=== PATIENT | male | born 1965 | race Caucasian/White ===

== ENCOUNTER 2017-04-21 22:21 | Emergency (ER) | payer BC ==
[2017-04-21 22:30] VITALS: BP 149/87; PULSE 98; RESP 18; TEMP 97.6
--- NOTE | 2017-04-21 23:12 | ED ---
Lower Extremity Injury HPI - General Chief Complaint: Extremity Injury, Lower Stated Complaint: L leg injury Time Seen by Provider: 04/21/17 22:35 Source: patient, RN notes reviewed Mode of arrival: ambulatory Limitations: no limitations - History of Present Illness Initial Comments: This a 51-year-old male presents emergency Department chief complaint of left knee bruising. Patient states that he fell while playing [employer] other day. Patient states that he has had surgery on his left knee in the past and was concerned Masella bruising traveling down his leg. He states his knee actually feels better than it has in the past. Patient states his orthopedic doctor is Dr. Marti. Patient states that he has full range of motion and denies any paresthesias. Denies any ankle pain. - Related Data Home Medications Medication Instructions Recorded Confirmed No Known Home Medications [No 04/21/17 04/21/17 Known Home Medications] Allergies Allergy/AdvReac Type Severity Reaction Status Date / Time Penicillins AdvReac Unknown Verified 04/21/17 22:41 Childhood Sulfa (Sulfonamide AdvReac Unknown Verified 04/21/17 22:41 Antibiotics) Childhood Review of Systems ROS Statement: Those systems with pertinent positive or pertinent negative responses have been documented in the HPI. ROS Other: All systems not noted in ROS Statement are negative. Past Medical History Past Medical History: No Reported History History of Any Multi-Drug Resistant Organisms: None Reported Past Surgical History: Orthopedic Surgery Additional Past Surgical History / Comment(s): bilateral knees Past Psychological History: No Psychological Hx Reported Smoking Status: Never smoker Past Alcohol Use History: Occasional Past Drug Use History: None Reported General Exam Limitations: no limitations General appearance: alert, in no apparent distress Neck exam: Present: normal inspection. Absent: tenderness, meningismus, lymphadenopathy Respiratory exam: Present: normal lung sounds bilaterally. Absent: respiratory distress, wheezes, rales, rhonchi, stridor Cardiovascular Exam: Present: regular rate, normal rhythm, normal heart sounds. Absent: systolic murmur, diastolic murmur, rubs, gallop, clicks Extremities exam: Present: other (Left knee there is full range of motion mild swelling neurovascular intact there is ecchymosis that starts at the lower portion of knee that extends down to the ankle. There is no tenderness to the calf pedal pulses equal bilaterally there is no ankle tenderness) Course Vital Signs 04/21/17 22:28 Temperature 97.6 F Pulse Rate 98 Respiratory 18 Rate Blood Pressure 149/87 O2 Sat by Pulse 97 Oximetry Medical Decision Making - Medical Decision Making 51-year-old male presented for left knee bruising. Patient has dramatic hematoma. Patient has a small joint effusion. Patient has no pain at this time states that she feels better than usual. Patient will be followed up with his orthopedic doctor return parameters were discussed. Disposition Clinical Impression: Traumatic ecchymosis of left knee, Effusion of left knee joint Disposition: HOME SELF-CARE Condition: Stable Instructions: Contusion in Adults (ED) Additional Instructions: Please return to the Emergency Department if symptoms worsen or any other concerns. Referrals: Chinmay Pantoja MD [Primary Care Provider] - 1-2 days Time of Disposition: 23:27
--- NOTE | 2017-04-21 23:21 | XR ---
EXAM: XR Left Knee, 3 views CLINICAL HISTORY: Pain TECHNIQUE: Three views of the left knee. COMPARISON: No relevant prior studies available. FINDINGS: Bones/joints: No acute fracture or traumatic malalignment. Small joint effusion. Mild degenerative changes. Soft tissues: Unremarkable. IMPRESSION: 1. No acute fracture or traumatic malalignment. 2. Small joint effusion.
== END 2017-04-21 23:33 | disposition home or self-care (01) ==
LOC: EC 22:21
DX: S80.02XA Contusion of left knee, initial encounter (principal); M25.462 Effusion, left knee; Z88.0 Allergy status to penicillin; Z88.2 Allergy status to sulfonamides; W19.XXXA Unspecified fall, initial encounter; Y93.79 Activity, other specified sports and athletics
CPT/HCPCS: 99283

== ENCOUNTER → 2019-03-01 | Outpatient (CLI) | payer BC ==
--- NOTE | 2019-03-01 08:48 | CT ---
EXAMINATION TYPE: CT sinus wo con DATE OF EXAM: 03/01/2019 COMPARISON: NONE HISTORY: Acute maxillary sinusitis per order. Throat mucus for [address] DLP: 1418.1 mGycm. Automated Exposure Control for Dose Reduction was Utilized. TECHNIQUE: CT scan of the sinuses is performed without contrast, axial images are obtained, coronal r eformatted images are also reviewed. FINDINGS: There is mild mucosal thickening involving the inferior left maxillary sinus. There is mini mal mucosal thickening involving anterior aspect left sphenoid sinus. No suspicious opacification or air-fluid levels are present. The ostiomeatal complex is patent bilaterally on the coronal images. N niko septum is slightly deviated to left of midline. Visualized portion of mastoid air cells show no abnormal opacification. The globes are intact bilate rally. Visualized portion of brain parenchyma is unremarkable. IMPRESSION: No acute sinusitis is evident.
== END | disposition home or self-care (01) ==
LOC: RADCTMAIN 07:22
PROVIDERS: ATTEND Internal Medicine Geriatric Medicine
DX: J01.00 Acute maxillary sinusitis, unspecified (principal)
CPT/HCPCS: 70486

== ENCOUNTER → 2019-04-16 | Outpatient (CLI) | payer BC | END | disposition home or self-care (01) | LOC: LABWHC1 06:44 | PROVIDERS: ATTEND Otolaryngology | DX: J30.89 Other allergic rhinitis (principal) | CPT/HCPCS: 36415; 86001 ==

== ENCOUNTER → 2019-06-25 | Outpatient (CLI) | payer BC ==
--- NOTE | 2019-06-25 10:09 | FL ---
EXAMINATION: Cervical and Thoracic Esophagram DATE OF EXAM: 06/25/2019 CLINICAL INDICATION: 53-year-old male dysphagia, sensation of mucus in the back of the throat, consta nt throat clearing. COMPARISON: None Total Fluoroscopy Time: 1 minute 12 seconds. Total images: 24. FINDINGS: The swallowing mechanism is normal and hypopharyngeal anatomy is preserved. The cervical and thoracic portions have a normal course and caliber. There are blunted secondary stripping waves allowing for prolonged pooling of contrast in the esophag us with the patient supine. Intermittent episodes of intraesophageal reflux and mild tertiary perista lsis is noted. The mucosa is normal and no persistent filling defect is encountered. No hiatal hernia is present. No gastroesophageal reflux is identified. IMPRESSION: 1. Mild esophageal dysmotility. 2. Otherwise, unremarkable esophagram.
== END | disposition home or self-care (01) ==
LOC: RADUSWWP 08:49
PROVIDERS: ATTEND Otolaryngology
DX: K22.4 Dyskinesia of esophagus (principal)
CPT/HCPCS: 74220

== ENCOUNTER 2019-10-06 09:40 | Day surgery (SDC) | payer BC ==
[2019-10-04 14:39] VITALS: BMI 28.3
[~2019-10-06 09:40] MED LIST: LACTATED RINGERS 1,000 ML IV SCH; LIDOCAINE 1% 20 ML VIAL (10MG/ML) FOR IV START INTRADERMA PRN
[2019-10-06 10:23] VITALS: RESP 16; TEMP 97.7
[2019-10-06] MEDS ORDERED: MIDAZOLAM 2 MG/2 ML VIAL ONE (10:28)
[2019-10-06] MEDS ORDERED: fentaNYL (PF) 50 MCG/ML 2 ML AMP ONE (10:28)
[2019-10-06] MEDS ORDERED: LIDOCAINE 1% INJ 10MG/ML (20 ML MDV) ONE (10:28)
--- NOTE | 2019-10-06 10:48 | P.PCN ---
Date of Procedure: 10/06/19 Procedure(s) Performed: Brief history: Patient is a pleasant 53-year-old white male, scheduled for an elective upper endoscopy as well as colonoscopy as a part of evaluation of intermittent dysphagia to solids and screening for colon cancer Procedure performed: Esophagogastroduodenoscopy with biopsy Colonoscopy Preoperative diagnosis: Intermittent dysphagia to solids and screening for colon cancer Anesthesia: MAC Procedure: After informed consent was obtained from the patient was brought into the e ndoscopy unit and IV sedation was administered by anesthesia under continuous monitoring. Initially upper endoscopy was done. The Olympus GF 160 video endoscope was inserted inserted into the mouth and esophagus intubated without any difficulty and was gradually advanced into the stomach and duodenum and carefully examined. The bulb had mild duodenitis and second part of the duodenum appeared normal. The scope was then withdrawn into the stomach adequately insufflated with air and upon careful examination the antrum had mild gastritis and biopsies were done from this area. The body, cardia and fundus appeared normal. The scope was then withdrawn into the esophagus. The GE junction was located at 40 cm to the incisors. It appeared regular with no erythema erosions or ulcerations. Rest of the esophagus appeared normal.. No evidence of esophageal stricture. The proximal cervical esophagus was carefully examined and appeared normal. Biopsies were done from mid and distal esophagus to rule out eosinophilic esophagitis. Patient tolerated the procedure well. At this time the patient continued to remain sedation. Initial digital rectal examination was normal. Olympus CF 160 video colonoscope was then inserted into the rectum and gradually advanced to the cecum without any difficulty. Careful examination was performed as the scope was gradually being withdrawn. The prep was excellent. The cecum, ascending colon, transverse colon, descending colon, sigmoid colon and rectum appeared normal. Retroflexion was performed in the rectum and no lesions were noted. Patient tolerated the procedure well. Impression: 1. Upper endoscopy revealed mild antral gastritis and duodenitis. No evidence of esophagitis or esophageal stricture 2. Colonoscopy was essentially within normal limits with no evidence of colitis or colorectal neoplasia. Recommendations: Findings of this examination were discussed with the patient as well as his family. he was advised to follow with the biopsy results. He will continue with Protonix 40 mg daily and continue to follow antireflux measures. He was advised to have a repeat screening colonoscopy in 10 years.
[2019-10-06 11:27] VITALS: BP 111/73; PULSE 78
== END 2019-10-06 11:35 | disposition home or self-care (01) ==
LOC: ORWHC2ENDO 09:40
PROVIDERS: ATTEND Internal Medicine Gastroenterology
DX: Z12.11 Encounter for screening for malignant neoplasm of colon (principal); K29.50 Unspecified chronic gastritis without bleeding; K21.0 Gastro-esophageal reflux disease with esophagitis; K29.80 Duodenitis without bleeding; Z88.0 Allergy status to penicillin; Z88.2 Allergy status to sulfonamides; Z79.1 Long term (current) use of non-steroidal anti-inflammatories (NSAID); Z79.899 Other long term (current) drug therapy
CPT/HCPCS: 88305; 43239; J2250; J2001; J3010; G0121

== ENCOUNTER → 2021-09-21 | Outpatient (CLI) | payer BC ==
--- NOTE | 2021-09-21 08:27 | XR ---
EXAMINATION TYPE: XR chest 2V DATE OF EXAM: 09/21/2021 COMPARISON: None HISTORY: 55-year-old male personal history of COVID, Z86.16 TECHNIQUE: PA and lateral views FINDINGS: The cardiomediastinal silhouette, aorta, and pulmonary vasculature are within normal limits. Some str corinne atelectasis at the left base. Otherwise, lungs and pleural spaces are clear. IMPRESSION: No acute cardiopulmonary process.
[2021-09-21 10:15] LABS: Basophils # (A) 0.08 X 10*3/uL (0.00-0.10); Basophils % (A) 1.5 %; Eosinophils # (A) 0.25 X 10*3/uL (0.04-0.35); Eosinophils % (A) 4.6 %; HCT 44.8 % (39.6-50.0); HGB 14.7 g/dL (13.0-17.0); Lymphocytes # (A) 1.77 X 10*3/uL (0.90-5.00); Lymphocytes % (A) 32.9 %; MCH 29.3 pg (27.0-32.0); MCHC 32.8 g/dL (32.0-37.0); MCV 89.2 fL (80.0-97.0); Mean Platelet Volume 10.6 fL (9.5-12.2); Monocytes # (A) 0.45 X 10*3/uL (0.20-1.00); Monocytes % (A) 8.4 %; Neutrophils # (A) 2.82 X 10*3/uL (1.80-7.70); Neutrophils % (A) 52.4 %; Platelet Count 235 X 10*3/uL (140-440); RBC 5.02 X 10*6/uL (4.40-5.60); RDW 12.4 % (11.5-14.5); WBC 5.38 X 10*3/uL (4.50-10.00)
[2021-09-21 10:51] LABS: ALT 30 U/L (10-49); AST 19 U/L (14-35); African American GFR (CKD) 110.3 (60.0-200.0); Albumin 4.3 g/dL (3.8-4.9); Albumin/Globulin Ratio 1.87 (1.60-3.17); Alkaline Phosphatase 89 U/L (41-126); BUN/Creat Ratio 11.44 Ratio (12.00-20.00); Blood Urea Nitrogen 10.3 mg/dL (9.0-27.0); Calcium 9.1 mg/dL (8.7-10.3); Carbon Dioxide 25.8 mmol/L (20.0-27.5); Chloride 105 mmol/L (96-109); Chol/HDL Ratio 3.99 Ratio; Globulin 2.3 g/dL (1.6-3.3); Glucose 107 mg/dL (70-110); LDL Cholesterol,Calculated 107.9 mg/dL (0.0-131.0); Non-African American GFR(CKD) 95.1 (60.0-200.0); Potassium 3.9 mmol/L (3.5-5.5); Sodium 141 mmol/L (135-145); Total Protein 6.6 g/dL (6.2-8.2)
== END | disposition home or self-care (01) ==
LOC: LABWHC1 07:02
PROVIDERS: ATTEND Internal Medicine Geriatric Medicine
DX: Z00.00 Encounter for general adult medical examination without abnormal findings (principal); N40.0 Benign prostatic hyperplasia without lower urinary tract symptoms; E78.2 Mixed hyperlipidemia; R73.9 Hyperglycemia, unspecified; Z86.16 Personal history of COVID-19
CPT/HCPCS: 36415; 71046; 80053; 80061; 83036; 84153; 84443; 85025; 86900; 86901

== ENCOUNTER → 2024-12-31 | Outpatient (CLI) | payer BC ==
--- NOTE | 2024-12-31 08:02 | XR ---
EXAMINATION TYPE: XR Hip Complete RT DATE OF EXAM: 12/31/2024 7:53 AM INDICATION: Patient age:Male; 59 years old; Reason for study: M79.604 PAIN IN RIGHT LEG; PHH. pain COMPARISON: None. TECHNIQUE: The right hip was examined in the frontal and lateral projections. FINDINGS: No evidence of any acute osseous pathology, joint dislocation, or soft tissue swelling. The re is superior joint space narrowing of the right hip with acetabular sclerosis. Benign bone islands within the right pubic symphysis. IMPRESSION: 1. No acute osseous pathology. 2. Mild osteoarthritic changes of the right hip. [facility], , 12/31/2024 7:59 AM
== END | disposition home or self-care (01) ==
LOC: RADXRMAIN 07:36
PROVIDERS: ATTEND Internal Medicine Geriatric Medicine
DX: M16.11 Unilateral primary osteoarthritis, right hip (principal)
CPT/HCPCS: 73502